=== PATIENT | female | born 1990 | race African-American/Black ===

== ENCOUNTER 2022-01-11 12:45 | Emergency (ER) | payer OTHER ==
[2022-01-11] MEDS ORDERED: Boostrix 0.5 ML (Tdap) VIAL (>/=7 yrs of age) ONE (13:57)
[2022-01-11] MEDS ORDERED: LORazepam 2 MG/ML SYR.(CARPUJECT) ONE (14:45)
[2022-01-11] MEDS ORDERED: Diazepam 2 MG TAB PO SCH (14:45)
[2022-01-11] MEDS ORDERED: Lorazepam 1 MG TAB ONE (14:47)
== END 2022-01-11 14:50 | disposition home or self-care (01) ==
LOC: ERS 12:45
DX: S90.414A Abrasion, right lesser toe(s), initial encounter (principal); S90.512A Abrasion, left ankle, initial encounter; Z23 Encounter for immunization; V48.4XXA Person boarding or alighting a car injured in noncollision transport accident, initial encounter
CPT/HCPCS: 90471; 90715